=== PATIENT | male | born 1960 | race African-American/Black ===

== ENCOUNTER 2017-08-13 18:45 | Emergency (ER) | payer MEDICAID ==
[~2017-08-13] VITALS: Ht 188 cm; Wt 50.0 kg
[2017-08-14 00:03] LABS: CLARITY URINE CLEAR (CLEAR); COLOR URINE YELLOW (YELLOW); GLUCOSE URINE NEGATIVE (NEGATIVE); KETONES URINE NEGATIVE (NEGATIVE); LEUKOCYTE ESTERASE URINE NEGATIVE (NEGATIVE); NITRITE URINE NEGATIVE (NEGATIVE); OCCULT BLOOD URINE NEGATIVE (NEGATIVE); PROTEIN URINE NEGATIVE (NEGATIVE); UROBILINOGEN URINE 0.2 E.U./dL (0.2-1.0)
[2017-08-14 00:17] LABS: *AMPHETAMINES SCREEN URINE NEGATIVE (NEGATIVE); *BARBITURATES SCREEN URINE NEGATIVE (NEGATIVE); *BENZODIAZEPINES SCREEN URINE NEGATIVE (NEGATIVE); *COCAINE SCREEN URINE NEGATIVE (NEGATIVE); CANNABINOID URINE SCREEN PRESUMTIVE POSITIVE (NEGATIVE); METHADONE URINE SCREEN NEGATIVE (NEGATIVE); OPIATES URINE SCREEN NEGATIVE (NEGATIVE); PHENCYCLIDINE URINE SCREEN NEGATIVE (NEGATIVE)
[2017-08-14 06:20] VITALS: BP 125/80
== END 2017-08-14 06:20 | disposition home or self-care (01) ==
LOC: ER 20:29
DX: F10.20 Alcohol dependence, uncomplicated (principal); R19.7 Diarrhea, unspecified; H54.7 Unspecified visual loss; R53.1 Weakness; R30.0 Dysuria; F17.200 Nicotine dependence, unspecified, uncomplicated
CPT/HCPCS: 70450; 80305; 81003; 93005; 99285; Z7610